=== PATIENT | female | born 1980 | race Caucasian/White ===

== ENCOUNTER → 2019-04-27 | Outpatient (CLI) | payer BC ==
--- NOTE | 2019-04-28 19:16 | SLEEP ---
DATE OF STUDY: 04/27/2019 HOME SLEEP STUDY ATTENDING PHYSICIAN: Dr. Fred Gan. The patient is a 38-year-old who weighs 180 pounds with a BMI of 25.8. The patient's [place] score was 0. The patient underwent home sleep study performed by [facility]. Total recording time was 511 minutes. During the night study, the patient had no central apneas. There were 2 obstructive apneas and 10 mixed apneas and 6 hypopneas. The patient's apnea hypopnea index was 2.1 per hour with no supine sleep observed. Nocturnal oximetry study revealed an average oxygen saturation of 95% with the lowest of 89%. Mean heart rate 59 beats per minute. IMPRESSION: 1. No clinically significant sleep disordered breathing. 2. No clinically significant nocturnal hypoxia. RECOMMENDATIONS: 1. The patient does not meet the criteria for CPAP initiation. 2. Weight loss is advised. 3. Avoid POP SINGER depressants. RAY ZAVALA MD DR: DOMINIC/mally JOB#: [id number] / [id number] Dr. Fred Nation
== END | disposition home or self-care (01) ==
LOC: RT 07:55
PROVIDERS: ATTEND Family Medicine
DX: G47.19 Other hypersomnia (principal)
CPT/HCPCS: G0399